=== PATIENT | female | born 1975 | race Caucasian/White ===

== ENCOUNTER 2020-08-13 10:31 | Observation (INO) | payer BC ==
[2020-08-09 13:04] LABS: BASOPHILS # (AUTO) 0.1 (0.0-0.1); BASOPHILS % 0.5 % (0.0-1.0); EOSINOPHILS # (AUTO) 0.3 (0.0-0.4); EOSINOPHILS % 3.4 % (0.0-6.0); HEMATOCRIT 42.7 % (34.2-44.1); HEMOGLOBIN 14.3 g/dL (12.0-16.0); LYMPHOCYTES # (AUTO) 2.8 (1.0-3.2); LYMPHOCYTES % 29.9 % (18.0-39.1); MEAN CORPUSCULAR HEMOGLOBIN 29.2 pg (28-32); MEAN CORPUSCULAR HGB CONC 33.5 g/dL (31-35); MEAN CORPUSCULAR VOLUME 87.1 fL (81-99); MONOCYTES # (AUTO) 0.5 (0.2-0.8); MONOCYTES % 5.7 % (4.4-11.3); NEUTROPHILS # (AUTO) 5.5 (2.1-6.9); NEUTROPHILS % 60.3 % (38.7-80.0); PLATELET COUNT 218 x10e3/uL (140-360); RED CELL DISTRIBUTION WIDTH 13.2 % (11.7-14.4)
[2020-08-09 13:15] LABS: CLARITY,URINE CLEAR (CLEAR); COLOR,URINE YELLOW (YELLOW); LEUKOCYTE ESTERASE ,URINE NEGATIVE (NEGATIVE); NITRITE,URINE NEGATIVE (NEGATIVE)
[2020-08-09 13:16] LABS: KETONES,URINE NEGATIVE (NEGATIVE); PROTEIN,URINE DIPSTICK NEGATIVE (NEGATIVE); URINE UROBILINOGEN 0.2 mg/dL (0.2 - 1)
[2020-08-09 13:25] LABS: ANION GAP 12.7 mmol/L (8-16); BLOOD UREA NITROGEN 9 mg/dL (7-26); BUN/CREATININE RATIO 11 (6-25); CALCIUM 8.9 mg/dL (8.4-10.2); CARBON DIOXIDE 25 mmol/L (22-29); CHLORIDE 106 mmol/L (98-107); CREATININE, SERUM 0.83 mg/dL (0.57-1.11); EST GLOMERULAR FILTRATION RATE > 60 ML/MIN (60-); GLUCOSE 97 mg/dL (74-118); POTASSIUM 3.7 mmol/L (3.5-5.1); SODIUM 140 mmol/L (136-145)
[~2020-08-13] VITALS: Ht 167.6 cm; Wt 113.9 kg
[~2020-08-13 10:31] MED LIST: BUPIVACAINE 0.25%/EPI 30ML SDV INJ ONE; IMMUNE SUPPORT PO; LEVOTHYROXINE100 MCG PO; LISINOPRIL-HCT1 EACH PO; MOTRIN PO; TYLENOL # 31 EA PO; VENLAFAXINE HCL75 MG PO
[2020-08-13] MEDS ORDERED: ONDANSETRON HCL INJ 2MG/ML 2ML 2 MG/ML VIAL ONE ×2 (12:13→12:19)
[2020-08-13] MEDS ORDERED: GLYCOPYRROLATE INJ 0.2 MG/ML VIAL ONE (12:19)
[2020-08-13] MEDS ORDERED: CEFOXITIN SOD 1 GM VIAL ONE (12:19)
[2020-08-13] MEDS ORDERED: DEXAMETHASONE SOD PHOS INJ 4 MG/ML VIAL ONE (12:19)
[2020-08-13] MEDS ORDERED: EPHEDRINE SULFATE INJ 50 MG/ML VIAL ONE (12:19)
[2020-08-13] MEDS ORDERED: NEOSTIGMINE 1 MG/ML 10ML VIAL ONE (12:19)
[2020-08-13] MEDS ORDERED: KETOROLAC TROMETHAMINE 30 MG/ML VIAL ONE (12:19)
[2020-08-13] MEDS ORDERED: ROCURONIUM BROMIDE 10 MG/ML 5ML VIAL IV ONE (12:19)
[2020-08-13] MEDS ORDERED: SEVOFLURANE INHAL SOLN 250 ML PEN BTL ONE (12:19)
[2020-08-13] MEDS ORDERED: LIDOCAINE HCL 2% LOCAL INJ 5 ML SDV VIAL INJ ONE (12:19)
[2020-08-13] MEDS ORDERED: PROPOFOL IV EMULSION 10 MG/ML 20 ML VIAL ONE (12:19)
[2020-08-13] MEDS ORDERED: FENTANYL CITRATE/PF 100MCG/2 ML INJ ONE ×2 (13:04→16:21)
[2020-08-13] MEDS ORDERED: MIDAZOLAM HCL 2 MG/2 ML VIAL ONE (13:04)
[2020-08-13] MEDS ORDERED: DOCUSATE SODIUM 100 MG CAP PO PRN (15:00)
[2020-08-13] MEDS ORDERED: DIPHENHYDRAMINE HCL 25 MG CAP PO PRN (15:00)
[2020-08-13] MEDS ORDERED: LACTATED RINGER'S 1,000 ML IV SCH (15:00)
[2020-08-13] MEDS ORDERED: ACETAMINOPHEN/CODEINE 300MG - 30MG TAB PO PRN (15:00)
[2020-08-13] MEDS ORDERED: ACETAMINOPHEN 325 MG TAB PO PRN (15:00)
[2020-08-13] MEDS ORDERED: BISACODYL 10 MG SUPP PR PRN (15:00)
[2020-08-13 17:10] VITALS: BP 115/65
[2020-08-13] MEDS: SIMETHICONE 80 MG CHEW PO SCH ×2 (17:29→20:30)
[2020-08-13] MEDS: KETOROLAC TROMETHAMINE 30 MG/ML VIAL IV SCH (17:30)
[2020-08-13] MEDS: LACTATED RINGER'S 1,000 ML IV SCH (17:30)
[2020-08-13] MEDS: ONDANSETRON HCL INJ 2MG/ML 2ML 2 MG/ML VIAL IV PRN ×2 (17:31→22:28)
[2020-08-13 18:06] VITALS: BP 115/65
[2020-08-13 18:17] VITALS: BP 115/65
[2020-08-13] MEDS: HYDROMORPHONE 1MG/1ML INJ IV PRN ×2 (18:41→22:25)
[2020-08-13 20:17] VITALS: BP 97/57
[2020-08-13] MEDS: VENLAFAXINE HCL 75 MG TAB PO SCH (20:30)
[2020-08-13] MEDS: CEFOXITIN 2GM/ D5W 50ML 50 ML IV SCH (20:30)
[2020-08-14] VITALS (11 sets, daily range): BP systolic 91–120; BP diastolic 54–69
[2020-08-14] MEDS: KETOROLAC TROMETHAMINE 30 MG/ML VIAL IV SCH ×3 (00:06→14:19)
[2020-08-14] MEDS: LACTATED RINGER'S 1,000 ML IV SCH ×2 (01:55→09:54)
[2020-08-14] MEDS: HYDROMORPHONE 1MG/1ML INJ IV PRN ×2 (02:02→10:56)
[2020-08-14] MEDS: CEFOXITIN 2GM/ D5W 50ML 50 ML IV SCH (02:06)
[2020-08-14 05:47] LABS: BASOPHILS % 0.2 % (0.0-1.0); HEMATOCRIT 38.1 % (34.2-44.1); HEMOGLOBIN 12.5 g/dL (12.0-16.0); LYMPHOCYTES # (AUTO) 1.3 (1.0-3.2); MEAN CORPUSCULAR HEMOGLOBIN 29.2 pg (28-32); MEAN CORPUSCULAR HGB CONC 32.8 g/dL (31-35); MONOCYTES # (AUTO) 0.6 (0.2-0.8); MONOCYTES % 4.7 % (4.4-11.3); NEUTROPHILS % 84.7 % (38.7-80.0); PLATELET COUNT 227 x10e3/uL (140-360); RED BLOOD COUNT 4.28 x10e6/uL (3.6-5.1); RED CELL DISTRIBUTION WIDTH 13.2 % (11.7-14.4)
[2020-08-14] MEDS: ONDANSETRON HCL INJ 2MG/ML 2ML 2 MG/ML VIAL IV PRN (05:55)
[2020-08-14 06:09] LABS: ANION GAP 14.8 mmol/L (8-16); BLOOD UREA NITROGEN 9 mg/dL (7-26); BUN/CREATININE RATIO 11 (6-25); CALCIUM 8.1 mg/dL (8.4-10.2); CARBON DIOXIDE 24 mmol/L (22-29); CHLORIDE 104 mmol/L (98-107); EST GLOMERULAR FILTRATION RATE > 60 ML/MIN (60-); GLUCOSE 109 mg/dL (74-118); POTASSIUM 3.8 mmol/L (3.5-5.1); SODIUM 139 mmol/L (136-145)
[2020-08-14] MEDS: SIMETHICONE 80 MG CHEW PO SCH ×2 (08:30→12:30)
[2020-08-14] MEDS ORDERED: LISINOPRIL 20 MG TAB PO SCH (09:00)
[2020-08-14] MEDS ORDERED: HYDROCHLOROTHIAZIDE 25 MG TAB PO SCH (09:00)
[2020-08-14] MEDS: VENLAFAXINE HCL 75 MG TAB PO SCH (09:46)
== END 2020-08-14 15:20 | disposition home or self-care (01) ==
LOC: OR 10:31 → PACU V 15:08 → MED/SURG 17:05
PROVIDERS: ADMIT Obstetrics & Gynecology; ATTEND Obstetrics & Gynecology
DX: K43.9 Ventral hernia without obstruction or gangrene (principal); K66.0 Peritoneal adhesions (postprocedural) (postinfection); N83.201 Unspecified ovarian cyst, right side; I10 Essential (primary) hypertension; E03.9 Hypothyroidism, unspecified; K57.90 Diverticulosis of intestine, part unspecified, without perforation or abscess without bleeding; G43.909 Migraine, unspecified, not intractable, without status migrainosus; F41.9 Anxiety disorder, unspecified; Z88.6 Allergy status to analgesic agent; Z01.810 Encounter for preprocedural cardiovascular examination; Z01.812 Encounter for preprocedural laboratory examination; Z01.818 Encounter for other preprocedural examination; Z20.822 Contact with and (suspected) exposure to COVID-19; Z87.891 Personal history of nicotine dependence
CPT/HCPCS: 36415 ×2; 49560; 49568; 58661; 71046; 80048 ×2; 81003; 85025 ×2; 86850; 86900; 88305; 93005; C1781; G0378 ×2; J0694 ×2; J1100; J1170 ×2; J1885 ×2; J2001; J2250; J2405 ×2; J2704; J2710; J3010; J7121 ×2; U0002; 88304